=== PATIENT | female | born 1970 | race Caucasian/White ===

== ENCOUNTER → 2017-03-27 10:41 | Outpatient (CLI) | payer BC ==
[2011-05-27 10:43] VITALS: BMI 31.8
== END | disposition home or self-care (01) ==
LOC: D.CT 10:41
DX: R10.9 Unspecified abdominal pain (principal)

== ENCOUNTER → 2017-09-12 13:33 | Outpatient (CLI) | payer BC ==
[2011-05-27 10:43] VITALS: BMI 31.8
== END | disposition home or self-care (01) ==
LOC: D.MAMMO 11:15
DX: Z12.31 Encounter for screening mammogram for malignant neoplasm of breast (principal)

== ENCOUNTER → 2018-09-25 17:58 | Outpatient (CLI) | payer OTHER ==
[2011-05-27 10:43] VITALS: BMI 31.8
== END | disposition home or self-care (01) ==
LOC: D.MAMMO 16:00
DX: Z12.31 Encounter for screening mammogram for malignant neoplasm of breast (principal)

== ENCOUNTER 2019-10-30 09:00 | Outpatient (CLI) | payer OTHER ==
[2011-05-27 10:43] VITALS: BMI 31.8
== END 2019-10-30 10:00 | disposition home or self-care (01) ==
LOC: D.MAMMO 09:00
PROVIDERS: ATTEND Nurse Practitioner Family
DX: Z12.31 Encounter for screening mammogram for malignant neoplasm of breast (principal)

== ENCOUNTER → 2020-05-16 13:20 | Outpatient (CLI) | payer OTHER ==
[2011-05-27 10:43] VITALS: BMI 31.8
== END | disposition home or self-care (01) ==
LOC: D.HCCECHO 13:20
PROVIDERS: ATTEND Internal Medicine Interventional Cardiology
DX: R01.1 Cardiac murmur, unspecified (principal); R07.9 Chest pain, unspecified